=== PATIENT | female | born 1965 | race Caucasian/White ===

== ENCOUNTER 2021-12-29 07:03 | Day surgery (SDC) | payer OTHER ==
[~2021-12-29] VITALS: Ht 149.9 cm; Wt 63.5 kg
[2021-12-29] MEDS ORDERED: fentaNYL citrate 0.05 MG/ML VIAL ONE (09:16)
[2021-12-29] MEDS ORDERED: LIDOCAINE 2% 100 MG/5 ML UJET TP ONE (09:16)
[2021-12-29] MEDS ORDERED: MIDAZOLAM 5 MG/5 ML VIAL ONE (09:16)
[2021-12-29] MEDS ORDERED: fentaNYL citrate 0.05 MG/ML VIAL IVP ONE (10:15)
== END 2021-12-29 10:38 | disposition home or self-care (01) ==
LOC: MOR 07:03 → MMU 07:04 → MOR 10:38
PROVIDERS: ATTEND Internal Medicine Gastroenterology
DX: Z12.11 Encounter for screening for malignant neoplasm of colon (principal); I10 Essential (primary) hypertension; E78.00 Pure hypercholesterolemia, unspecified; Z88.0 Allergy status to penicillin; Z86.010 Personal history of colon polyps; Z20.822 Contact with and (suspected) exposure to COVID-19
CPT/HCPCS: 45378; 81025; 87426; J3010; J2250